=== PATIENT | female | born 1975 | race Caucasian/White ===

== ENCOUNTER 2016-09-08 05:33 | Outpatient (CLI) | payer OTHER ==
[~2016-09-08] VITALS: Ht 165.1 cm; Wt 97.5 kg
[~2016-09-08 05:33] MED LIST: AGM875T PO; FLUC200T45 PO; HYDR1TAB8 OP
== END 2016-09-08 11:12 ==
LOC: PREOP 05:33
PROVIDERS: ATTEND Surgery
DX: Z01.818 Encounter for other preprocedural examination (principal); C43.59 Malignant melanoma of other part of trunk

== ENCOUNTER 2016-09-13 06:57 | Day surgery (SDC) | payer OTHER ==
[~2016-09-13] VITALS: Ht 165.1 cm; Wt 97.5 kg
--- OUTSIDE RECORDS SUMMARY | 2016-09-13 07:03 | XMS REPORT | Continuity of Care Document ---
Author Author [facility] Organization [facility] Address Unknown Phone Unavailable Care Team Providers Care Composite Mechanic Name Role Phone JOSE MIGUEL JEAN DO PCP Insurance Providers Payer Name Policy Number Subscriber Name Relationship UMR [id number] Robert Dias Self / Same As Patient Advance Directives Directive Response Recorded Date/Time Advance Directives No 09/08/16 11:05am Health Care Power of Invoicing Machine Operator No 09/08/16 11:05am Organ Donor No 09/08/16 11:05am Resuscitation Status Full Code 09/08/16 11:05am Problems No problem information available. Medications No known medications. Social History Social History Problem Response Recorded Date/Time Alcohol Use Occasionally Uses 01/26/2014 9:05am Recreational Drug Use No 01/26/2014 9:05am Recent Foreign Travel No 01/26/2014 9:05am Recent Infectious Disease Exposure No 01/26/2014 9:05am Smoking Status Former Smoker 09/08/2016 11:05am Recent Hopitalizations No 09/08/2016 11:05am Query Response Start Date Stop Date Smoking Status Former Smoker Hospital Discharge Instructions No hospital discharge instructions. Plan of Care Discharge Date 09/08/16 11:12am Prescriptions See Medication Section Functional Status No functional status results. Allergies, Adverse Reactions, Alerts No known allergies. Immunizations No immunization records. Vital Signs Acute Vital Signs Vital Response Date/Time Height (Feet) 5 feet 09/08/2016 11:07am Height (Inches) 5.00 inches 09/08/2016 11:07am Height (Calculated Centimeters) 165.555315 cm 09/08/2016 11:07am Weight (Pounds) 215 pounds 09/08/2016 11:07am Weight (Ounces) 0.0 oz 09/08/2016 11:07am Weight (Calculated Grams) 19190.36 gm 09/08/2016 11:07am Weight (Calculated Kilograms) 97.822017 kilograms 09/08/2016 11:07am Calculated BMI 35.8 09/08/2016 11:07am Results No known relevant diagnostic tests, laboratory data and/or discharge summary. Procedures No known history of procedures. Encounters Encounter Location Arrival/Admit Date Discharge/Depart Date Attending Provider Departed Clinic [facility] 09/08/16 5:33am 09/08/16 11: 12am FADUMO MCKINNEY MD Registered Clinic [facility] 08/13/16 11:24am JOSE MIGUEL JEAN DO
--- OUTSIDE RECORDS SUMMARY | 2016-09-13 07:03 | XMS REPORT | Continuity of Care Document ---
Author Author [facility] Organization [facility] Address Unknown Phone Unavailable Care Team Providers Care Director Of Vocational Training Name Role Phone JOSE MIGUEL JEAN DO PCP Insurance Providers Payer Name Policy Number Subscriber Name Relationship UMR [id number] Robert Dias Self / Same As Patient Advance Directives Directive Response Recorded Date/Time Advance Directives No 09/08/16 11:05am Health Care Power of Printer Slotter Feeder No 09/08/16 11:05am Organ Donor No 09/08/16 [...] 5.00 inches 09/08/2016 11:07am Height (Calculated Centimeters) 165.594654 cm 09/08/2016 11:07am Weight (Pounds) 215 pounds 09/08/2016 11:07am Weight (Ounces) 0.0 oz 09/08/2016 11:07am Weight (Calculated Grams) 62746.36 gm 09/08/2016 11:07am Weight (Calculated Kilograms) 97.673681 kilograms 09/08/2016 11:07am Calculated BMI 35.8 09/08/2016 11:07am Results No known relevant diagnostic tests, laboratory data and/or discharge summary. Procedures No known history of procedures. Encounters Encounter Location Arrival/Admit Date Discharge/Depart Date Attending Provider Departed Clinic [facility] 09/08/16 5:33am 09/08/16 11: 12am FADUMO MCKINNEY MD Registered Clinic [facility] 08/13/16 11:24am JOSE MIGUEL JEAN DO
--- NOTE | 2016-09-13 08:59 | Diagnostic Imaging Report ---
EXAMINATION: Lymphoscintigraphy. After the subdermal injection of 1.1 mCi of Tc 99m sulfur colloid, around the tumor site in the back, scintigraphic imaging was performed over the chest . INDICATION: Melanoma in right lower back. FINDINGS: 3 axillary sentinel nodes are detected on the right side. IMPRESSION: 3 right axillary sentinel lymph nodes detected. Dictated by: Dictated on workstation # [id number]
[2016-09-13] MEDS ORDERED: ceFAZolin 2 GM/NS 50 ML IV ONE (09:15)
[2016-09-13 09:18] VITALS: BP 137/75
[2016-09-13] MEDS: LACTATED RINGERS 1,000 ML IV PRN ×2 (11:28→14:15)
[2016-09-13] MEDS ORDERED: MIDAZOLAM 2 MG/2 ML (VERSED) VIAL IV ONE (11:30)
[2016-09-13] MEDS ORDERED: 0.9% SODIUM CHLORIDE PF INJ 20 ML VIAL ONE (12:10)
[2016-09-13] MEDS ORDERED: METHYLENE BLUE 1% INJ 1 ML AMP ONE (12:10)
[2016-09-13] MEDS ORDERED: BUP/EPI 0.25% 1:200,000 (MARCAINE) 30 ML VIAL ONE ×2 (12:10→14:14)
[2016-09-13] MEDS ORDERED: EPINEPHrine INJECTION 1 MG/ML AMP ONE (12:30)
--- NOTE | 2016-09-13 12:51 | Progress Note-Pre Operative ---
Pre-Operative Progress Note H&P Reviewed The H&P was reviewed, patient examined and no changes noted. Date H&P Reviewed: Sep 13, 2016 Time H&P Reviewed: 12:51 Pre-Operative Diagnosis: melanoma of back FADUMO MCKINNEY MD Sep 13, 2016 12:51 pm
[2016-09-13] MEDS ORDERED: ROCURONIUM 50 MG/5 ML (ZEMURON) VIAL IV ONE (12:58)
[2016-09-13] MEDS ORDERED: fentaNYL INJECTION 100 MCG/2 ML AMP ONE ×2 (12:58→14:05)
[2016-09-13] MEDS ORDERED: proPOfol 200 MG/20 ML (DIPRIVAN) VIAL IV ONE (12:58)
[2016-09-13] MEDS ORDERED: ONDANSETRON 4 MG/2 ML (SDV) Z0FRAN ONE (14:05)
[2016-09-13] MEDS ORDERED: LACTATED RINGERS 1,000 ML IV ONE ×2 (14:05→14:32)
[2016-09-13] MEDS ORDERED: SEVOFLURANE (ULTANE) 15 ML INHAL SOLN ONE ×4 (14:05→14:32)
[2016-09-13] MEDS ORDERED: NEOSTIGMINE (BLOXIVERZ ) 1 MG/1ML 10 ML VIAL ONE (14:31)
[2016-09-13] MEDS ORDERED: GLYCOPYRROLATE 0.2 MG/ML (ROBINUL) 2 ML VIAL ONE (14:31)
[2016-09-13] MEDS: morphine INJ 10 MG/ML 1ML (SYR OR VIAL) IV PRN ×2 (14:44→14:54)
[2016-09-13] MEDS ORDERED: ONDANSETRON 4 MG/2 ML (SDV) Z0FRAN IV PRN (15:00)
[2016-09-13] MEDS ORDERED: KETOROLAC 30 MG/ML VIAL IV SCH (15:00)
--- NOTE | 2016-09-13 15:03 | Progress Note-Post Operative ---
Post-Operative Progess Note Pre-Operative Diagnosis melanoma of back Post-Operative Diagnosis SAME Post-Op Procedure Note Date of Procedure: Sep 13, 2016 Name of Procedure: 1. [place] lymph node biopsy 2. Wide excision of melanoa with STSG(24 sq cm) Anesthesia Type Gen Estimated blood loss (mL): Minimal Specimen(s) collected [place] node and melanoma FADUMO MCKINNEY MD Sep 13, 2016 3:03 pm
[2016-09-13] MEDS ORDERED: HYDR-3812 PO (15:05)
--- NOTE | 2016-09-13 15:06 | Discharge Inst-Simple/Standard ---
Discharge Inst-Standard Discharge Medications New, Converted or Re-Newed RX: RX on Chart Patient Instructions/Follow Up Plan of Care/Instructions/FU: Dressings to stay intact until Tuesday the . F/U with my nurse on Tuesday(09/17) Activity as Tolerated: Yes Discharge Diet: No Restrictions FADUMO MCKINNEY MD Sep 13, 2016 3:05 pm
[2016-09-13 15:30] VITALS: BP 118/63
[2016-09-13 16:00] VITALS: BP 131/71
[2016-09-13 16:30] VITALS: BP 116/68
--- NOTE | 2016-09-14 10:00 | OPERATIVE REPORT ---
PROCEDURE PHYSICIAN: FADUMO MCKINNEY DATE OF PROCEDURE: 09/13/2016 PREOPERATIVE DIAGNOSIS: Malignant melanoma of the back. POSTOPERATIVE DIAGNOSIS: Malignant melanoma of the back. OPERATION: 1. [place] lymph node biopsy- right axilla. 2. Wide excision of melanoma with split-thickness skin graft (24 sq cm). SURGEON: [place] ANESTHESIA: General anesthesia. BLOOD LOSS: Minimal. FLUIDS: 1100 mL of crystalloids. TYPE OF WOUND: Type I (clean wound) INDICATION FOR THE PROCEDURE: Punch biopsy of a lesion over the back was found to be a level IV melanoma. Therefore, she returned for wide excision with [address] around and split thickness skin grafting, combined with sentinel lymph node biopsy. Informed consent was obtained after reviewing the operative details and complications of wound infection, failure of the graft and postoperative hematoma. DESCRIPTION OF PROCEDURE: Following her admission to the outpatient surgery area, she underwent lymphoscintigraphy using technetium labeled sulfa colloid at the radiology department. Activity was noted in the right axilla. Subsequently, she was brought to the operating room and general anesthesia induced using an endotracheal tube. 2 grams of Ancef were administered intravenously for prophylaxis against wound infection. I injected a total of 4 mL of methylene blue intradermally into the lesion at the beginning of the operation. 1. SENTINEL LYMPH NODE BIOPSY RIGHT AXILLA: After adequate antiseptic preparation, preemptive analgesia was established using 0.25% Marcaine with epinephrine. A 5 cm incision was made inferior to the axillary hair line and using the gamma probe, a blue-colored lymph node with high activity was encountered. It was removed after controlling the lymphatics were Ligaclips. Further probing did not show any activity and therefore the biopsy was completed/ The area was irrigated with saline and the incision closed with 3-0 Vicryl for the subcutaneous tissue and 4-0 Vicryl for skin, in a subcuticular fashion. 2. WIDE EXCISION WITH SPLIT THICKNESS SKIN GRAFT: Once the right axilla incision was covered with a sterile dressing, she was turned prone onto the operating table and other pressure areas were padded and protected. An area of full-thickness skin measuring 6 x 4 cm was excised over the back. Hemostasis was achieved using cautery and thickness skin graft obtained from the upper back placed over the site of excision. It was secured with edison and a nonadherent dressing applied. She was then turned supine before being extubated and taken to the recovery room in a stable condition. Job ID: [id number] Dictated Date: 09/13/2016 15:09:15 Remelt Pan Tank Operator Date: 09/14/2016 09:51:13 / chito MEAD
== END 2016-09-13 16:50 | disposition home or self-care (01) ==
LOC: CARD 06:57
PROVIDERS: ATTEND Surgery
DX: C43.59 Malignant melanoma of other part of trunk (principal); Z11.2 Encounter for screening for other bacterial diseases
CPT/HCPCS: 78195; 84703; 87081; 88305; 88307; 88344

== ENCOUNTER 2016-11-04 13:46 | Outpatient (RCR) | payer OTHER ==
--- OUTSIDE RECORDS SUMMARY | 2016-10-20 13:09 | XMS REPORT | Continuity of Care Document ---
Author Author [facility] Organization [facility] Address Unknown Phone Unavailable Care Team Providers Care Oil Winterizer Name Role Phone JOSE MIGUEL JEAN DO PCP Insurance Providers Payer Name Policy Number Subscriber Name Relationship UMR [id number] Robert Dias Self / Same As Patient Advance Directives Directive Response Recorded Date/Time Advance Directives No 09/08/16 11:05am Health Care Power of Sugar Controller No 09/08/16 11:05am Organ Donor No 09/08/16 [...] 5.00 inches 09/08/2016 11:07am Height (Calculated Centimeters) 165.131388 cm 09/08/2016 11:07am Weight (Pounds) 215 pounds 09/08/2016 11:07am Weight (Ounces) 0.0 oz 09/08/2016 11:07am Weight (Calculated Grams) 84273.36 gm 09/08/2016 11:07am Weight (Calculated Kilograms) 97.210405 kilograms 09/08/2016 11:07am Calculated BMI 35.8 09/08/2016 11:07am Results No known relevant diagnostic tests, laboratory data and/or discharge summary. Procedures No known history of procedures. Encounters Encounter Location Arrival/Admit Date Discharge/Depart Date Attending Provider Departed Clinic [facility] 09/08/16 5:33am 09/08/16 11: 12am FADUMO MCKINNEY MD Registered Clinic [facility] 08/13/16 11:24am JOSE MIGUEL JEAN DO
[2016-10-20 14:00] LABS: BASOPHILS % (AUTO) 1 % (0-10); EOSINOPHILS # (AUTO) 0.4 10^3/uL (0.0-0.3); EOSINOPHILS % (AUTO) 5 % (0-10); LYMPHOCYTES # (AUTO) 2.4 X 10^3 (1.0-4.0); LYMPHOCYTES % (AUTO) 31 % (12-44); MEAN CORPUSCULAR HEMOGLOBIN 30 PG (25-34); MEAN CORPUSCULAR HGB CONC 33 G/DL (32-36); MEAN CORPUSCULAR VOLUME 92 FL (80-99); MEAN PLATELET VOLUME 8.9 FL (7.4-10.4); MONOCYTES # (AUTO) 0.6 X 10^3 (0.0-1.0); MONOCYTES % (AUTO) 7 % (0-12); NEUTROPHILS # (AUTO) 4.4 X 10^3 (1.8-7.8); NEUTROPHILS % (AUTO) 57 % (42-75); PLATELET COUNT 450 10^3/uL (130-400); RED BLOOD COUNT 4.03 10^6/uL (4.35-5.85); RED CELL DISTRIBUTION WIDTH 13.5 % (10.0-14.5); WHITE BLOOD COUNT 7.7 10^3/uL (4.3-11.0)
[2016-10-20 14:50] LABS: ALANINE AMINOTRANSFERASE 14 U/L (0-55); ANION GAP 9 MMOL/L (5-14); ASPARTATE AMINO TRANSFERASE 18 U/L (5-34); BILIRUBIN,TOTAL 0.3 MG/DL (0.1-1.0); BLOOD UREA NITROGEN 12 MG/DL (7-18); BUN/CREATININE RATIO 12; CALCIUM 8.9 MG/DL (8.5-10.1); CARBON DIOXIDE 24 MMOL/L (21-32); CHLORIDE 108 MMOL/L (98-107); CREATININE SERUM 0.97 MG/DL (0.60-1.30); GFR ESTIMATED > 60; GLUCOSE 99 MG/DL (70-105); POTASSIUM 4.1 MMOL/L (3.6-5.0); SODIUM 141 MMOL/L (135-145); TOTAL PROTEIN 6.6 G/DL (6.4-8.2)
[2016-10-20 15:16] LABS: LACTATE DEHYDROGENASE 188 U/L (125-220)
[~2016-11-04 13:46] MED LIST changes: +HYDR-3812 PO
[2016-11-04 14:06] LABS: BASOPHILS % (AUTO) 0 % (0-10); EOSINOPHILS # (AUTO) 0.3 10^3/uL (0.0-0.3); EOSINOPHILS % (AUTO) 3 % (0-10); LYMPHOCYTES # (AUTO) 2.5 X 10^3 (1.0-4.0); LYMPHOCYTES % (AUTO) 31 % (12-44); MEAN CORPUSCULAR HEMOGLOBIN 30 PG (25-34); MEAN CORPUSCULAR HGB CONC 33 G/DL (32-36); MEAN CORPUSCULAR VOLUME 90 FL (80-99); MEAN PLATELET VOLUME 8.9 FL (7.4-10.4); MONOCYTES # (AUTO) 0.6 X 10^3 (0.0-1.0); MONOCYTES % (AUTO) 7 % (0-12); NEUTROPHILS # (AUTO) 4.7 X 10^3 (1.8-7.8); NEUTROPHILS % (AUTO) 59 % (42-75); PLATELET COUNT 359 10^3/uL (130-400); RED BLOOD COUNT 4.24 10^6/uL (4.35-5.85); RED CELL DISTRIBUTION WIDTH 13.4 % (10.0-14.5)
[2016-11-04 14:45] LABS: ALANINE AMINOTRANSFERASE 8 U/L (0-55); ALBUMIN 4.1 G/DL (3.2-4.5); ANION GAP 9 MMOL/L (5-14); ASPARTATE AMINO TRANSFERASE 17 U/L (5-34); BILIRUBIN,TOTAL 0.5 MG/DL (0.1-1.0); BLOOD UREA NITROGEN 12 MG/DL (7-18); BUN/CREATININE RATIO 13; CALCIUM 9.1 MG/DL (8.5-10.1); CARBON DIOXIDE 22 MMOL/L (21-32); CHLORIDE 107 MMOL/L (98-107); CREATININE SERUM 0.92 MG/DL (0.60-1.30); GFR ESTIMATED > 60; GLUCOSE 87 MG/DL (70-105); LACTATE DEHYDROGENASE 172 U/L (125-220); POTASSIUM 4.2 MMOL/L (3.6-5.0); SODIUM 138 MMOL/L (135-145); TOTAL PROTEIN 6.8 G/DL (6.4-8.2)
== END 2017-01-18 | disposition home or self-care (01) ==
LOC: ONC 13:46
PROVIDERS: ATTEND Internal Medicine Hematology & Oncology
DX: C43.59 Malignant melanoma of other part of trunk (principal); D22.5 Melanocytic nevi of trunk; R79.89 Other specified abnormal findings of blood chemistry; E66.9 Obesity, unspecified; Z68.35 Body mass index [BMI] 35.0-35.9, adult
CPT/HCPCS: 36415; 80053; 83615; 85025; 99213

== ENCOUNTER 2017-01-24 10:16 | Outpatient (RCR) | payer OTHER ==
[2017-01-24 10:29] LABS: BASOPHILS # (AUTO) 0.1 10^3/uL (0.0-0.1); BASOPHILS % (AUTO) 1 % (0-10); EOSINOPHILS # (AUTO) 0.6 10^3/uL (0.0-0.3); EOSINOPHILS % (AUTO) 8 % (0-10); LYMPHOCYTES # (AUTO) 2.4 X 10^3 (1.0-4.0); LYMPHOCYTES % (AUTO) 31 % (12-44); MEAN CORPUSCULAR HEMOGLOBIN 31 PG (25-34); MEAN CORPUSCULAR HGB CONC 32 G/DL (32-36); MEAN CORPUSCULAR VOLUME 95 FL (80-99); MEAN PLATELET VOLUME 8.9 FL (7.4-10.4); MONOCYTES # (AUTO) 0.5 X 10^3 (0.0-1.0); MONOCYTES % (AUTO) 6 % (0-12); NEUTROPHILS # (AUTO) 4.1 X 10^3 (1.8-7.8); NEUTROPHILS % (AUTO) 54 % (42-75); PLATELET COUNT 378 10^3/uL (130-400); RED BLOOD COUNT 4.27 10^6/uL (4.35-5.85); RED CELL DISTRIBUTION WIDTH 14.3 % (10.0-14.5); WHITE BLOOD COUNT 7.6 10^3/uL (4.3-11.0)
[2017-01-24 11:35] LABS: ALANINE AMINOTRANSFERASE 8 U/L (0-55); ALBUMIN 4.1 G/DL (3.2-4.5); ANION GAP 10 MMOL/L (5-14); ASPARTATE AMINO TRANSFERASE 16 U/L (5-34); BILIRUBIN,TOTAL 0.3 MG/DL (0.1-1.0); BLOOD UREA NITROGEN 13 MG/DL (7-18); BUN/CREATININE RATIO 15; CALCIUM 9.2 MG/DL (8.5-10.1); CARBON DIOXIDE 23 MMOL/L (21-32); CHLORIDE 107 MMOL/L (98-107); CREATININE SERUM 0.84 MG/DL (0.60-1.30); GFR ESTIMATED > 60; GLUCOSE 93 MG/DL (70-105); POTASSIUM 4.5 MMOL/L (3.6-5.0); SODIUM 140 MMOL/L (135-145); TOTAL PROTEIN 6.8 G/DL (6.4-8.2)
== END 2017-04-24 | disposition home or self-care (01) ==
LOC: ONC 10:16
PROVIDERS: ATTEND Internal Medicine Hematology & Oncology
DX: C43.59 Malignant melanoma of other part of trunk (principal); D22.5 Melanocytic nevi of trunk; R79.89 Other specified abnormal findings of blood chemistry; E66.9 Obesity, unspecified; Z68.35 Body mass index [BMI] 35.0-35.9, adult
CPT/HCPCS: 36415; 80053; 85025; 99213

== ENCOUNTER 2017-04-25 10:38 | Outpatient (RCR) | payer OTHER ==
[2017-06-23 15:55] LABS: ANION GAP 10 MMOL/L (5-14); BLOOD UREA NITROGEN 14 MG/DL (7-18); BUN/CREATININE RATIO 14; CALCIUM 9.2 MG/DL (8.5-10.1); CARBON DIOXIDE 24 MMOL/L (21-32); CHLORIDE 105 MMOL/L (98-107); CREATININE SERUM 0.98 MG/DL (0.60-1.30); GFR ESTIMATED > 60; GLUCOSE 94 MG/DL (70-105); SODIUM 139 MMOL/L (135-145)
== END 2017-07-25 | disposition home or self-care (01) ==
LOC: ONC 10:38
PROVIDERS: ATTEND Internal Medicine Hematology & Oncology
DX: C43.59 Malignant melanoma of other part of trunk (principal); D22.5 Melanocytic nevi of trunk; R79.89 Other specified abnormal findings of blood chemistry; E66.9 Obesity, unspecified; Z68.35 Body mass index [BMI] 35.0-35.9, adult
CPT/HCPCS: 80048

== ENCOUNTER 2017-05-10 14:15 | Outpatient (RCR) | payer OTHER ==
[2017-05-10 14:24] LABS: BASOPHILS % (AUTO) 1 % (0-10); EOSINOPHILS # (AUTO) 0.5 10^3/uL (0.0-0.3); EOSINOPHILS % (AUTO) 7 % (0-10); LYMPHOCYTES # (AUTO) 2.1 X 10^3 (1.0-4.0); LYMPHOCYTES % (AUTO) 26 % (12-44); MEAN CORPUSCULAR HEMOGLOBIN 32 PG (25-34); MEAN CORPUSCULAR HGB CONC 34 G/DL (32-36); MEAN CORPUSCULAR VOLUME 96 FL (80-99); MEAN PLATELET VOLUME 9.4 FL (7.4-10.4); MONOCYTES # (AUTO) 0.5 X 10^3 (0.0-1.0); MONOCYTES % (AUTO) 7 % (0-12); NEUTROPHILS # (AUTO) 4.7 X 10^3 (1.8-7.8); NEUTROPHILS % (AUTO) 60 % (42-75); PLATELET COUNT 353 10^3/uL (130-400); RED BLOOD COUNT 4.01 10^6/uL (4.35-5.85); RED CELL DISTRIBUTION WIDTH 12.7 % (10.0-14.5); WHITE BLOOD COUNT 7.8 10^3/uL (4.3-11.0)
[2017-05-10 14:44] LABS: ALBUMIN 4.1 GM/DL (3.2-4.5); BILIRUBIN,TOTAL 0.3 MG/DL (0.1-1.0); CALCIUM 9.1 MG/DL (8.5-10.1); CREATININE SERUM 1.4 MG/DL (0.60-1.30); POTASSIUM 4.5 MMOL/L (3.6-5.0); TOTAL PROTEIN 7.1 GM/DL (6.4-8.2)
[2017-05-10 15:25] LABS: BILIRUBIN,URINE NEGATIVE (NEGATIVE); KETONES,URINE NEGATIVE (NEGATIVE); LEUKOCYTE ESTERASE ,URINE 1+ (NEGATIVE); NITRITE,URINE NEGATIVE (NEGATIVE); PH,URINE 6 (5-9); PROTEIN,URINE NEGATIVE (NEGATIVE); UROBILINOGEN,URINE NORMAL (NORMAL)
== END 2017-05-14 | disposition home or self-care (01) ==
LOC: ONC 14:15
PROVIDERS: ATTEND Internal Medicine Hematology & Oncology
DX: C43.59 Malignant melanoma of other part of trunk (principal); D22.5 Melanocytic nevi of trunk; R79.89 Other specified abnormal findings of blood chemistry; E66.9 Obesity, unspecified; Z68.35 Body mass index [BMI] 35.0-35.9, adult
CPT/HCPCS: 36415; 80053; 81000; 83615; 85025; 99213

== ENCOUNTER → 2017-08-16 | Outpatient (CLI) | payer OTHER ==
[~2017-08-16] MED LIST changes: +ACHD5005 PO; -HYDR-3812 PO
--- NOTE | 2017-08-17 09:16 | Diagnostic Imaging Report ---
INDICATION: Screening. The current study was also evaluated with a Computer Aided Detection (CAD) system. Comparison made with prior examination from 08/13/2016, 08/12/15, 06/21/2014 and 08/18/2011. FINDINGS: There are scattered fibroglandular densities in the breasts bilaterally. There are benign type calcifications. There is no dominant mass, spiculated lesion or suspicious calcification identified. Skin, nipples and axilla are unremarkable. IMPRESSION: Category 2 benign ACR BI-RADS Category 2: Benign findings. Result letter will be mailed to the patient. Note: At least 10% of breast cancer is not imaged by mammography. Dictated by: Dictated on workstation # [id number]
== END ==
LOC: RAD 12:56
PROVIDERS: ATTEND Family Medicine
DX: Z12.31 Encounter for screening mammogram for malignant neoplasm of breast (principal)
CPT/HCPCS: 77067

== ENCOUNTER 2017-11-04 14:03 | Outpatient (RCR) | payer OTHER ==
[2017-11-04 14:50] LABS: BASOPHILS % (AUTO) 1 % (0-10); EOSINOPHILS # (AUTO) 0.5 10^3/uL (0.0-0.3); EOSINOPHILS % (AUTO) 6 % (0-10); HEMATOCRIT 40 % (35-52); HEMOGLOBIN 13.6 G/DL (11.5-16.0); LYMPHOCYTES # (AUTO) 2.1 X 10^3 (1.0-4.0); LYMPHOCYTES % (AUTO) 25 % (12-44); MEAN CORPUSCULAR HEMOGLOBIN 31 PG (25-34); MEAN CORPUSCULAR HGB CONC 34 G/DL (32-36); MEAN CORPUSCULAR VOLUME 92 FL (80-99); MEAN PLATELET VOLUME 10.1 FL (7.4-10.4); MONOCYTES # (AUTO) 0.6 X 10^3 (0.0-1.0); MONOCYTES % (AUTO) 7 % (0-12); NEUTROPHILS # (AUTO) 5.3 X 10^3 (1.8-7.8); NEUTROPHILS % (AUTO) 62 % (42-75); PLATELET COUNT 354 10^3/uL (130-400); RED BLOOD COUNT 4.37 10^6/uL (4.35-5.85); RED CELL DISTRIBUTION WIDTH 13.1 % (10.0-14.5); WHITE BLOOD COUNT 8.5 10^3/uL (4.3-11.0)
[2017-11-04 15:15] LABS: ALANINE AMINOTRANSFERASE 12 U/L (0-55); ALBUMIN 4.5 GM/DL (3.2-4.5); ALKALINE PHOSPHATASE 55 U/L (40-136); BILIRUBIN,TOTAL 0.5 MG/DL (0.1-1.0); BUN/CREATININE RATIO 18; CALCIUM 9.5 MG/DL (8.5-10.1); CARBON DIOXIDE 22 MMOL/L (21-32); CHLORIDE 105 MMOL/L (98-107); CREATININE SERUM 0.83 MG/DL (0.60-1.30); GFR ESTIMATED > 60; GLUCOSE 79 MG/DL (70-105); SODIUM 137 MMOL/L (135-145); TOTAL PROTEIN 7.2 GM/DL (6.4-8.2)
== END 2018-02-02 | disposition home or self-care (01) ==
LOC: ONC 14:03
PROVIDERS: ATTEND Internal Medicine Hematology & Oncology
DX: C43.59 Malignant melanoma of other part of trunk (principal); D22.5 Melanocytic nevi of trunk; E66.9 Obesity, unspecified; Z68.34 Body mass index [BMI] 34.0-34.9, adult
CPT/HCPCS: 36415; 80053; 83615; 85025; 99213

== ENCOUNTER 2018-06-23 15:01 | Outpatient (RCR) | payer BC, OTHER ==
[2018-06-23 15:24] LABS: BASOPHILS % (AUTO) 1 % (0-10); EOSINOPHILS # (AUTO) 0.5 10^3/uL (0.0-0.3); EOSINOPHILS % (AUTO) 5 % (0-10); HEMATOCRIT 37 % (35-52); HEMOGLOBIN 12.1 G/DL (11.5-16.0); LYMPHOCYTES # (AUTO) 2.5 X 10^3 (1.0-4.0); LYMPHOCYTES % (AUTO) 30 % (12-44); MEAN CORPUSCULAR HEMOGLOBIN 32 PG (25-34); MEAN CORPUSCULAR HGB CONC 33 G/DL (32-36); MEAN CORPUSCULAR VOLUME 98 FL (80-99); MEAN PLATELET VOLUME 9.2 FL (7.4-10.4); MONOCYTES # (AUTO) 0.5 X 10^3 (0.0-1.0); MONOCYTES % (AUTO) 6 % (0-12); NEUTROPHILS # (AUTO) 4.9 X 10^3 (1.8-7.8); NEUTROPHILS % (AUTO) 58 % (42-75); PLATELET COUNT 353 10^3/uL (130-400); RED CELL DISTRIBUTION WIDTH 13.2 % (10.0-14.5); WHITE BLOOD COUNT 8.5 10^3/uL (4.3-11.0)
[2018-06-23 15:42] LABS: ALANINE AMINOTRANSFERASE 8 U/L (0-55); ALBUMIN 4.2 GM/DL (3.2-4.5); ALKALINE PHOSPHATASE 50 U/L (40-136); BILIRUBIN,TOTAL 0.3 MG/DL (0.1-1.0); BUN/CREATININE RATIO 19; CALCIUM 9.4 MG/DL (8.5-10.1); CARBON DIOXIDE 22 MMOL/L (21-32); CHLORIDE 106 MMOL/L (98-107); CREATININE SERUM 0.95 MG/DL (0.60-1.30); GFR ESTIMATED > 60; GLUCOSE 95 MG/DL (70-105); POTASSIUM 4.2 MMOL/L (3.6-5.0); SODIUM 136 MMOL/L (135-145); TOTAL PROTEIN 6.9 GM/DL (6.4-8.2)
== END 2018-09-21 | disposition home or self-care (01) ==
LOC: ONC 15:01
PROVIDERS: ATTEND Internal Medicine Hematology & Oncology
DX: C43.59 Malignant melanoma of other part of trunk (principal); D22.5 Melanocytic nevi of trunk; E66.9 Obesity, unspecified; Z68.36 Body mass index [BMI] 36.0-36.9, adult
CPT/HCPCS: 80053; 83615; 85025; 99213

== ENCOUNTER → 2018-08-24 | Outpatient (CLI) | payer BC ==
--- NOTE | 2018-08-24 08:49 | Diagnostic Imaging Report ---
INDICATION: Routine screening. Comparison is made with prior mammogram from 08/16/2017 and 08/13/2016. 2-D and 3-D bilateral screening mammography was performed with a Computer Aided Detection (CAD) system. FINDINGS: Scattered fibroglandular densities are identified bilaterally. Benign calcifications are identified bilaterally. No dominant mass or malignant appearing microcalcifications are seen. The axillae are unremarkable. IMPRESSION: No mammographic features suspicious for malignancy are identified. ACR BI-RADS Category 2: Benign findings. Result letter will be mailed to the patient. Note: At least 10% of breast cancer is not imaged by mammography. Dictated by: Dictated on workstation # [id number]
== END ==
LOC: RAD 07:58
PROVIDERS: ATTEND Family Medicine
DX: Z12.31 Encounter for screening mammogram for malignant neoplasm of breast (principal)
CPT/HCPCS: 77067

== ENCOUNTER 2019-01-02 17:53 | Emergency (ER) | payer BC ==
[~2019-01-02] VITALS: Ht 165.1 cm; Wt 98.9 kg
[2019-01-02 18:00] VITALS: BP_SYST 154; BP_SYST 164; BP_DIAS 114; BP_DIAS 97
--- OUTSIDE RECORDS SUMMARY | 2019-01-02 18:00 | XMS REPORT | Continuity of Care Document ---
Author Organization Unknown Address Unknown Allergies Active Description Code Type Severity Reaction Onset Reported/Identified Relationship to Patient Clinical Status Yes No Known Drug Allergies [id number] Drug Allergy Unknown N/A 01/26/2014 Medications There is no data. Problems Date Dx Coded Attending Type Code Diagnosis Diagnosed By 01/26/2014 YUDITH RUVALCABA DO Ot 802.20 MANDIBLE FX NOS-CLOSED 01/26/2014 YUDITH RUVALCABA DO Ot E000.8 OTHER EXTERNAL CAUSE STATUS 01/26/2014 YUDITH RUVALCABA DO Ot E007.3 ACTIVITIES INVOLVING BASEBALL 01/26/2014 YUDITH RUVALCABA DO Ot E917.0 STRUCK IN SPORTS 07/29/2014 BRANDY CUEVAS DO Ot V76.12 08/12/2015 Ot V76.12 08/12/2015 BRANDY CUEVAS DO S Ot V76.12 09/05/2015 BRANDY CUEVAS DO Ot Z12.31 08/17/2016 BRANDY CUEVAS DO Ot Z12.31 ENCNTR SCREEN MAMMOGRAM FOR MALIGNANT NE 09/02/2016 BRANDY CUEVAS DO S Ot Z12.31 ENCNTR SCREEN MAMMOGRAM FOR MALIGNANT NE 09/08/2016 HANK VENTURA, FADUMO Thurman Ot C43.59 MALIGNANT MELANOMA OF OTHER PART OF TRUN 09/08/2016 FADUMO MCKINNEY MD Ot Z01.818 ENCOUNTER FOR OTHER PREPROCEDURAL EXAMIN 09/08/2016 FADUMO MCKINNEY MD Ot C43.59 MALIGNANT MELANOMA OF OTHER PART OF TRUN 09/08/2016 FADUMO MCKINNEY MD Ot Z01.818 ENCOUNTER FOR OTHER PREPROCEDURAL EXAMIN 09/13/2016 Ot V76.12 OTH SCREEN MAMMO- MALIGN NEOPLASM OF [place] 09/13/2016 BRANDY CUEVAS DO Ot V76.12 OTH SCREEN MAMMO-MALIGN NEOPLASM OF [place] 09/13/2016 BRANDY CUEVAS DO Ot Z12.31 ENCNTR SCREEN MAMMOGRAM FOR MALIGNANT NE 09/13/2016 BRANDY CUEVAS DO S Ot Z12.31 ENCNTR SCREEN MAMMOGRAM FOR MALIGNANT NE 09/13/2016 HANK VENTURA, FADUMO Thurman Ot C43.59 MALIGNANT MELANOMA OF OTHER PART OF TRUN 09/13/2016 FADUMO MCKINNEY MD Ot Z11.2 ENCOUNTER FOR SCREENING FOR OTHER BACTER 09/14/2016 FADUMO MCKINNEY MD Ot C43.59 MALIGNANT MELANOMA OF OTHER PART OF TRUN 09/14/2016 FADUMO MCKINNEY MD Ot Z11.2 ENCOUNTER FOR SCREENING FOR OTHER BACTER 09/16/2016 FADUMO MCKINNEY MD Ot C43.59 MALIGNANT MELANOMA OF OTHER PART OF TRUN 09/16/2016 FADUMO MCKINNEY MD Ot Z11.2 ENCOUNTER FOR SCREENING FOR OTHER BACTER 12/02/2016 ANABEL SÁNCHEZ MD, Ot C43.59 MALIGNANT MELANOMA OF OTHER PART OF TRUN 01/18/2017 ANABEL SÁNCHEZ MD, Ot C43.59 MALIGNANT MELANOMA OF OTHER PART OF TRUN 01/18/2017 ANABEL SÁNCHEZ MD, Ot 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 01/18/2017 ANABEL SÁNCHEZ MD Ot E66.9 OBESITY, UNSPECIFIED 01/18/2017 ANABEL SÁNCHEZ MD Ot R79.89 OTHER SPECIFIED ABNORMAL FINDINGS OF BLO 01/18/2017 ANABEL SÁNCHEZ MD, Ot Z68.35 BODY MASS INDEX (BMI) 35.0-35.9, ADULT 01/26/2017 ANABEL SÁNCHEZ MD, Ot C43.59 MALIGNANT MELANOMA OF OTHER PART OF TRUN 01/26/2017 ANABEL SÁNCHEZ MD, Ot 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 01/26/2017 ANABEL SÁNCHEZ MD Ot E66.9 OBESITY, UNSPECIFIED 01/26/2017 ANABEL SÁNCHEZ MD Ot R79.89 OTHER SPECIFIED ABNORMAL FINDINGS OF BLO 01/26/2017 ANABEL SÁNCHEZ MD, Ot Z68.35 BODY MASS INDEX (BMI) 35.0-35.9, ADULT 03/11/2017 ANABEL SÁNCHEZ MD, Ot C43.59 MALIGNANT MELANOMA OF OTHER PART OF TRUN 03/11/2017 ANABEL SÁNCHEZ MD, Ot 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 03/11/2017 ANABEL SÁNCHEZ MD, Ot E66.9 OBESITY, UNSPECIFIED 03/11/2017 ANABEL SÁNCHEZ MD Ot R79.89 OTHER SPECIFIED ABNORMAL FINDINGS OF BLO 03/11/2017 ANABEL SÁNCHEZ MD, Ot Z68.35 BODY MASS INDEX (BMI) 35.0-35.9, ADULT 04/18/2017 RESHMAESTELA BRANDY S Ot V76.12 OTH SCREEN MAMMO-MALIGN NEOPLASM OF [place] 04/18/2017 CELSONDER BRANDY S Ot Z12.31 ENCNTR SCREEN MAMMOGRAM FOR MALIGNANT NE 04/18/2017 CELSONDER BRANDY S Ot Z12.31 ENCNTR SCREEN MAMMOGRAM FOR MALIGNANT NE 04/18/2017 ANABEL SÁNCHEZ MD, Ot C43.59 MALIGNANT MELANOMA OF OTHER PART OF TRUN 04/18/2017 ANABEL SÁNCHEZ MD Ot 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 04/18/2017 ANABEL SÁNCHEZ MD, Ot E66.9 OBESITY, UNSPECIFIED 04/18/2017 ANABEL SÁNCHEZ MD, Ot R79.89 OTHER SPECIFIED ABNORMAL FINDINGS OF BLO 04/18/2017 ANABEL SÁNCHEZ MD, Ot Z68.35 BODY MASS INDEX (BMI) 35.0-35.9, ADULT 04/24/2017 ANABEL SÁNCHEZ MD, Ot C43.59 MALIGNANT MELANOMA OF OTHER PART OF TRUN 04/24/2017 ANABEL SÁNCHEZ MD Ot 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 04/24/2017 ANABEL SÁNCHEZ MD, Ot E66.9 OBESITY, UNSPECIFIED 04/24/2017 ANABEL SÁNCHEZ MD Ot R79.89 OTHER SPECIFIED ABNORMAL FINDINGS OF BLO 04/24/2017 ANABEL SÁNCHEZ MD Ot Z68.35 BODY MASS INDEX (BMI) 35.0-35.9, ADULT 05/09/2017 VARSHA IBANEZ Ot C43.59 MALIGNANT MELANOMA OF OTHER PART OF TRUN 05/09/2017 VARSHA IBANEZ Ot 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59 MALIGNANT MELANOMA OF OTHER PART OF TRUN 05/14/2017 VARSHA IBANEZ N Ot 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 05/14/2017 MARCELLE BOBKRISTINA N Ot E66.9 OBESITY, UNSPECIFIED 05/14/2017 MARCELLEVARSHA FLYNN N Ot R79.89 OTHER SPECIFIED ABNORMAL FINDINGS OF BLO 05/14/2017 VARSHA IBANEZ N Ot Z68.35 BODY MASS INDEX (BMI) 35.0-35.9, ADULT 05/23/2017 VARSHA IBANEZ N Ot C43.59 MALIGNANT MELANOMA OF OTHER PART OF TRUN 05/23/2017 VARSHA IBANEZ N Ot 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 05/23/2017 VARSHA IBANEZ N Ot E66.9 OBESITY, UNSPECIFIED 05/23/2017 MARCELLEVARSHA FLYNN N Ot R79.89 OTHER SPECIFIED ABNORMAL FINDINGS OF BLO 05/23/2017 VARSHA IBANEZ N Ot Z68.35 BODY MASS INDEX (BMI) 35.0-35.9, ADULT 07/20/2017 VARSHA IBANEZ N Ot C43.59 MALIGNANT MELANOMA OF OTHER PART OF TRUN 07/20/2017 VARSHA IBANEZ N Ot 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 07/20/2017 MARCELLEVARSHA FLYNN N Ot E66.9 OBESITY, UNSPECIFIED 07/20/2017 MARCELLE, BOBKRISTINA N Ot R79.89 OTHER SPECIFIED ABNORMAL FINDINGS OF BLO 07/20/2017 VARSHA IBANEZ N Ot Z68.35 BODY MASS INDEX (BMI) 35.0-35.9, ADULT 07/20/2017 BRANDY CUEVAS DO Ot V76.12 OTH SCREEN MAMMO-MALIGN NEOPLASM OF [place] 07/20/2017 BRANDY CUEVAS DO S Ot Z12.31 ENCNTR SCREEN MAMMOGRAM FOR MALIGNANT NE 07/20/2017 BRANDY CUEVAS DO S Ot Z12.31 ENCNTR SCREEN MAMMOGRAM FOR MALIGNANT NE 07/20/2017 VARSHA IBANEZ N Ot C43.59 MALIGNANT MELANOMA OF OTHER PART OF TRUN 07/20/2017 VARSHA IBANEZ N Ot 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 07/20/2017 VARSHA IBANEZ N Ot E66.9 OBESITY, UNSPECIFIED 07/20/2017 VARSHA IABNEZ N Ot R79.89 OTHER SPECIFIED ABNORMAL FINDINGS OF BLO 07/20/2017 VARSHA IBANEZ N Ot Z68.35 BODY MASS INDEX (BMI) 35.0-35.9, ADULT 07/21/2017 VARSHA IBANEZ N Ot C43.59 MALIGNANT MELANOMA OF OTHER PART OF TRUN 07/21/2017 MARCELLE JALENKRISTINA N Ot 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 07/21/2017 MARCELLE JALENKRISTINA N Ot E66.9 OBESITY, UNSPECIFIED 07/21/2017 MARCELLEVARSHA FLYNN N Ot R79.89 OTHER SPECIFIED ABNORMAL FINDINGS OF BLO 07/21/2017 VARSHA IBANEZ N Ot Z68.35 BODY MASS INDEX (BMI) 35.0-35.9, ADULT 07/21/2017 VARSHA IBANEZ N Ot C43.59 MALIGNANT MELANOMA OF OTHER PART OF TRUN 07/21/2017 VARSHA IBANEZ N Ot 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 07/21/2017 MARCELLE JALENKRISTINA N Ot E66.9 OBESITY, UNSPECIFIED 07/21/2017 VARSHA IBANEZ N Ot R79.89 OTHER SPECIFIED ABNORMAL FINDINGS OF BLO 07/21/2017 VARSHA IBANEZ N Ot Z68.35 BODY MASS INDEX (BMI) 35.0-35.9, ADULT 07/25/2017 MARCELLE JALENKRISTINA N Ot C43.59 MALIGNANT MELANOMA OF OTHER PART OF TRUN 07/25/2017 MARCELLE JALENKRISTINA N Ot 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 07/25/2017 MARCELLE VARSHA N Ot E66.9 OBESITY, UNSPECIFIED 07/25/2017 MARCELLE VARSHA N Ot R79.89 OTHER SPECIFIED ABNORMAL FINDINGS OF BLO 07/25/2017 VARSHA IBANEZ Ot Z68.35 BODY MASS INDEX (BMI) 35.0-35.9, ADULT 07/26/2017 VARSHA IBANEZ Ot C43.59 MALIGNANT MELANOMA OF OTHER PART OF TRUN 07/26/2017 VARSHA IBANEZ Ot 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 07/26/2017 VARSHA IBANEZ Ot E66.9 OBESITY, UNSPECIFIED 07/26/2017 VARSHA IBANEZ Ot R79.89 OTHER SPECIFIED ABNORMAL FINDINGS OF BLO 07/26/2017 VARSHA IBANEZ Ot Z68.35 BODY MASS INDEX (BMI) 35.0-35.9, ADULT 09/08/2017 BRANDY CUEVAS DO Ot Z12.31 ENCNTR SCREEN MAMMOGRAM FOR MALIGNANT NE 11/08/2017 CAMELIA FRANCIS MD Ot C43.59 MALIGNANT MELANOMA OF OTHER PART OF TRUN 11/08/2017 CAMELIA FRANCIS MD Ot 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 11/08/2017 CAMELIA FRANCIS MD Ot E66.9 OBESITY, UNSPECIFIED 11/08/2017 CAMELIA FRANCIS MD Ot R79.89 OTHER SPECIFIED ABNORMAL FINDINGS OF BLO 11/08/2017 CAMELIA FRANCIS MD Ot Z68.35 BODY MASS INDEX (BMI) 35.0-35.9, ADULT 02/02/2018 CAMELIA FRANCIS MD Ot C43.59 MALIGNANT MELANOMA OF OTHER PART OF TRUN 02/02/2018 CAMELIA FRANCIS MD Ot 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 02/02/2018 CAMELIA FRANCIS MD Ot E66.9 OBESITY, UNSPECIFIED 02/02/2018 CAMELIA FRANCIS MD Ot Z68.34 BODY MASS INDEX (BMI) 34.0-34.9, ADULT 02/03/2018 CAMELIA FRANCIS MD Ot C43.59 MALIGNANT MELANOMA OF OTHER PART OF TRUN 02/03/2018 CAMELIA FRANCIS MD Ot 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 02/03/2018 CAMELIA FRANCIS MD Ot E66.9 OBESITY, UNSPECIFIED 02/03/2018 CAMELIA FRANCIS MD Ot Z68.34 BODY MASS INDEX (BMI) 34.0-34.9, ADULT 02/21/2018 CAMELIA FRANCIS MD Ot C43.59 MALIGNANT MELANOMA OF OTHER PART OF TRUN 02/21/2018 CAMELIA FRANCIS MD Ot 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 02/21/2018 CAMELIA FRANCIS MD Ot E66.9 OBESITY, UNSPECIFIED 02/21/2018 CAMELIA FRANCIS MD Ot Z68.34 BODY MASS INDEX (BMI) 34.0-34.9, ADULT 08/25/2018 BRANDY CUEVAS DO S Ot Z12.31 ENCNTR SCREEN MAMMOGRAM FOR MALIGNANT NE 09/06/2018 BRANDY CUEVAS DO S Ot Z12.31 ENCNTR SCREEN MAMMOGRAM FOR MALIGNANT NE 09/21/2018 CAMELIA FRANCIS MD Ot C43.59 MALIGNANT MELANOMA OF OTHER PART OF TRUN 09/21/2018 CAMELIA FRANCIS MD Ot 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 09/21/2018 CAMELIA FRANCIS MD Ot E66.9 OBESITY, UNSPECIFIED 09/21/2018 CAMELIA FRANCIS MD Ot Z68.36 BODY MASS INDEX (BMI) 36.0-36.9, ADULT 09/22/2018 CAMELIA FRANCIS MD Ot C43.59 MALIGNANT MELANOMA OF OTHER PART OF TRUN 09/22/2018 CAMELIA FRANCIS MD Ot 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 Results Test Result Range Urine beta human chorionic gonadotropin (hCG) measurement - 09/13/16 07:20 Urine beta human chorionic gonadotropin (hCG) measurement NEGATIVE NEGATIVE Methicillin resistant Staphylococcus aureus (MRSA) screening culture - 09/13/16 08:42 Methicillin resistant Staphylococcus aureus (MRSA) screening culture NEG NRG Whole blood basic metabolic panel - 06/23/17 15:30 Serum or plasma sodium measurement (moles/volume) 139 mmol/L 135-145 Serum or plasma potassium measurement (moles/volume) 4.0 mmol/L 3.6-5.0 Serum or plasma chloride measurement (moles/volume) 105 mmol/L 98-107 Carbon dioxide 24 mmol/L 21-32 Serum or plasma anion gap determination (moles/volume) 10 mmol/L 5-14 Serum or plasma urea nitrogen measurement (mass/volume) 14 mg/dL 7-18 Serum or plasma creatinine measurement (mass/volume) 0.98 mg/dL 0.60-1.30 Serum or plasma urea nitrogen/creatinine mass ratio 14 NRG Serum or plasma creatinine measurement with calculation of estimated glomerular filtration rate > NRG Serum or plasma glucose measurement (mass/volume) 94 mg/dL 70-105 Serum or plasma calcium measurement (mass/volume) 9.2 mg/dL 8.5-10.1 Encounters ACCT No. Visit Date/Time Discharge Status Pt. Type Provider Facility Loc./Unit Complaint [id number] 12/22/2018 15:01:00 12/22/2018 23:59:59 CLS Outpatient CAMELIA FRANCIS MD [facility] ONC [id number] 06/23/2018 15:01:00 09/21/2018 00:01:00 DIS Outpatient CAMELIA FRANCIS MD [facility] ONC [id number] 08/24/2018 07:58:00 08/24/2018 23:59:59 CLS Outpatient BRANDY CUEVAS DO [facility] RAD SCREENING [id number] 11/04/2017 14:03:00 02/02/2018 00:01:00 DIS Outpatient CAMELIA FRANCIS MD [facility] ONC [id number] 08/16/2017 12:56:00 08/16/2017 23:59:59 CLS Outpatient BRANDY CUEVAS DO S [facility] RAD SCREENING [id number] 04/25/2017 10:38:00 07/25/2017 00:01:00 DIS Outpatient VARSHA IBANEZ [facility] ONC [id number] 05/10/2017 14:15:00 05/14/2017 00:01:00 DIS Outpatient VARSHA IBANEZ [facility] ONC [id number] 01/24/2017 10:16:00 04/24/2017 00:01:00 DIS Outpatient ANABEL SÁNCHEZ MD [facility] ONC [id number] 11/04/2016 13:46:00 01/18/2017 00:01:00 DIS Outpatient ANABEL SÁNCHEZ MD [facility] ONC [id number] 09/13/2016 06:57:00 09/13/2016 16:50:00 DIS Outpatient FADUMO MCKINNEY MD [facility] CARD MELANOMA [id number] 09/08/2016 05:33:00 09/08/2016 11:12:00 DIS Outpatient FADUMO MCKINNEY MD [facility] PREOP MELANOMA [id number] 08/13/2016 11:24:00 08/13/2016 23:59:59 CLS Outpatient PARVEEN CUEVAS DOQUELINE S [facility] RAD SCREENING [id number] 08/12/2015 11:06:00 08/12/2015 23:59:59 CLS Outpatient MIRANDA ALAS BRANDY S [facility] RAD SCREENING [id number] 06/21/2014 10:19:00 06/21/2014 23:59:59 CLS Outpatient MIRANDA ALAS BRANDY S [facility] RAD SCREENING [id number] 01/26/2014 09:01:00 01/26/2014 10:17:00 DIS Emergency JORDON YUDITH ALAS [facility] ER FACIAL INJURY L SIDE [id number] 08/12/2015 11:07:00 Document Registration [id number] 08/18/2011 07:05:00 Document Registration 10/201708/21/2018 14:34:49 08/21/2018 23:59:59 CLS Outpatient Brandy Cuevas S.
[2019-01-02] MEDS ORDERED: ONDANSETRON 4 MG/2 ML (SDV) Z0FRAN IVP ONE ×3 (18:15→19:15)
[2019-01-02 18:18] LABS: BASOPHILS # (AUTO) 0.1 10^3/uL (0.0-0.1); BASOPHILS % (AUTO) 1 % (0-10); EOSINOPHILS # (AUTO) 0.3 10^3/uL (0.0-0.3); EOSINOPHILS % (AUTO) 4 % (0-10); HEMATOCRIT 38 % (35-52); LYMPHOCYTES # (AUTO) 2.5 X 10^3 (1.0-4.0); LYMPHOCYTES % (AUTO) 29 % (12-44); MEAN CORPUSCULAR HEMOGLOBIN 32 PG (25-34); MEAN CORPUSCULAR HGB CONC 34 G/DL (32-36); MEAN CORPUSCULAR VOLUME 94 FL (80-99); MEAN PLATELET VOLUME 9.3 FL (7.4-10.4); MONOCYTES # (AUTO) 0.6 X 10^3 (0.0-1.0); MONOCYTES % (AUTO) 7 % (0-12); NEUTROPHILS % (AUTO) 60 % (42-75); PLATELET COUNT 371 10^3/uL (130-400); RED CELL DISTRIBUTION WIDTH 12.7 % (10.0-14.5); WHITE BLOOD COUNT 8.4 10^3/uL (4.3-11.0)
--- NOTE | 2019-01-02 18:24 | NUR ---
[facility] ON STANDBY
[2019-01-02] MEDS ORDERED: fentaNYL INJECTION 100 MCG/2 ML AMP ONE (18:25)
[2019-01-02] MEDS ORDERED: fentaNYL INJECTION 100 MCG/2 ML AMP IVP ONE (18:30)
--- NOTE | 2019-01-02 18:31 | NUR ---
[facility] DECLINED FOR WEATHER.
--- NOTE | 2019-01-02 18:32 | Diagnostic Imaging Report ---
CLINICAL INDICATION: Patient with facial droop, stroke protocol. EXAM: Axial CT scan of the brain performed without IV contrast. COMPARISON: None. FINDINGS: There is a 3.4 cm x 3.4 cm hyperdense area within the right frontal lobe with moderate amount of adjacent parenchymal edema. There is also another grossly 13 mm area of subtle increased/isodensity involving the right parietal lobe with small amount of low density adjacent to it. There is roughly 3 mm of [id number] midline shift. There is no intraventricular blood or hydrocephalus. The suprasellar cistern appear slightly effaced due to mass effect with crowding of the right ambient cistern region. The extracranial soft tissue, skull, and orbits are unremarkable. Paranasal sinuses are clear. Mastoid air cells are unremarkable. IMPRESSION: 1: There is a 3.4 cm high density area in the right frontal lobe region with moderate adjacent parenchymal edema. This finding is concerning for intra-parenchymal blood. A hemorrhagic mass may also be considered. MRI of the brain with and without IV contrast is recommended for further evaluation. 2: There is concern for possible other 13 mm area involving the right parietal lobe with small amount of adjacent low density. This may also represent a mass. This would be better evaluated with MRI of the brain as well. 3: There is mild [id number]-hd-[id number] midline shift and crowding of the basal cisterns. There is no hydrocephalus. Results of this report discussed with Dr. Polina Hope via the telephone on 01/02/2019 at 1820 hrs. CRITICAL FINDINGS Dictated by: Dictated on workstation # [id number]
--- NOTE | 2019-01-02 18:34 | NUR ---
[facility] CALLED TO BE PUT ON STANDBY ET WILL CALLBACK AFTER THEY HAVE [facility]AR[facility].
[2019-01-02] MEDS ORDERED: SCOPOLAMINE 1.5 MG (TRANSDERM-SCOP) PATCH ONE (18:35)
--- NOTE | 2019-01-02 18:36 | NUR ---
CT CALLED TO HAVE IMAGES CLOUDED TO [facility].
[2019-01-02 18:38] LABS: FIBRIN DEGRADATION PRODUCTS 0.3 UG/ML (0.00-0.49); INR 0.9 (0.8-1.4); PROTHROMBIN TIME PATIENT 12.8 SEC (12.2-14.7)
[2019-01-02 18:42] LABS: ALANINE AMINOTRANSFERASE 11 U/L (0-55); ALBUMIN 4.3 GM/DL (3.2-4.5); ALKALINE PHOSPHATASE 53 U/L (40-136); BILIRUBIN,TOTAL 0.2 MG/DL (0.1-1.0); BUN/CREATININE RATIO 14; CALCIUM 9.3 MG/DL (8.5-10.1); CARBON DIOXIDE 20 MMOL/L (21-32); CHLORIDE 106 MMOL/L (98-107); CREATININE SERUM 1.03 MG/DL (0.60-1.30); GFR ESTIMATED 58; GLUCOSE 112 MG/DL (70-105); POTASSIUM 3.5 MMOL/L (3.6-5.0); SODIUM 141 MMOL/L (135-145); TOTAL PROTEIN 6.7 GM/DL (6.4-8.2)
--- NOTE | 2019-01-02 18:43 | NUR ---
[facility] HAS DECLINED INCLUDING [facility]. [facility] ON PHONE WITH DISPATCH AT THIS TIME.
--- NOTE | 2019-01-02 18:44 | Diagnostic Imaging Report ---
INDICATION: Stroke. TIME OF EXAM: 06:29 p.m. FINDINGS: The heart size is normal. The pulmonary vascularity is unremarkable. The lungs are clear. No infiltrate, effusion or pneumothorax is detected. IMPRESSION: No acute cardiopulmonary process is detected. Dictated by: Dictated on workstation # [id number]
[2019-01-02] MEDS ORDERED: SCOPOLAMINE 1.5 MG (TRANSDERM-SCOP) PATCH TD ONE (18:45)
[2019-01-02] MEDS ORDERED: LABETALOL HCL 20 MG/4 ML VIAL IV ONE ×2 (18:45→19:00)
--- NOTE | 2019-01-02 18:48 | NUR ---
REPORT AND CARE TURNED OVER TO ELIANE.
[2019-01-02 19:00] VITALS: BP 147/71
[2019-01-02 19:15] VITALS: BP 147/71
--- NOTE | 2019-01-02 23:17 | ED Neurological Problem ---
General Chief Complaint: Neuro-Stroke Like Symptoms Stated Complaint: STROKE Nursing Triage Note: ARRIVED VIA EMS WITH STROKE LIKE SYMPTOMS, LEFT SIDED FACIAL DROOPING AND SLURRED SPEACH Nursing Sepsis Screen: No Definite Risk Source: patient, EMS History of Present Illness Date Seen by Provider: January 02, 2019 Time Seen by Provider: 17:58 Initial Comments PT ARRIVES VIA EMS FROM HOME, TAKEN STRAIGHT TO CT C/O SUDDEN ONSET OF LEFT FACIAL DROOP AND NUMBNESS, AND SLURRED SPEECH--SYMPTOMS BEGAN AT 1720 WHILE RESTING AT HOME ALSO HAD SUDDEN ONSET OF RIGHT FRONTAL/PARIETAL HEADACHE WHEN SYMPTOMS BEGAN BEGAN TO HAVE NAUSEA/VOMITING IN THE AMBULANCE ON ARRIVAL HERE NO EXTREMITY WEAKNESS OR DIFFICULTY WALKING NO VISION CHANGES NO SYNCOPE NO CHEST PAIN, NO SHORTNESS OF BREATH, NO PALPITATIONS MILD DIZZINESS NO HISTORY OF SIMILAR NO HISTORY OF ANY MEDICAL PROBLEMS, DOES NOT TAKE ANY MEDICATIONS LMP 1 WEEK AGO, NORMAL. NO CONTROL EMS REPORT INITIAL BP 159/67, PULSE 94, O2 SAT 100%, BP 90/55, HR 90, O2 SAT 100% BY EMS JUST PRIOR TO ARRIVAL PCP: DR. JEAN Allergies and Home Medications Allergies Coded Allergies: No Known Drug Allergies (Unverified , 01/26/14) Home Medications Hydrocodone Bit/Acetaminophen 1 Each Tablet, 1-2 TAB PO 4-6HR PRN for PAIN Prescribed by: FADUMO MCKINNEY on 09/13/16 1505 Patient Home Medication List Home Medication List Reviewed: Yes Review of Systems Review of Systems Constitutional: No chills, No diaphoresis; dizziness; No fever, No malaise, No weakness Eyes: No Symptoms Reported Ears, Nose, Mouth, Throat: no symptoms reported Respiratory: no symptoms reported Cardiovascular: no symptoms reported; No chest pain, No palpitations, No syncope Gastrointestinal: see HPI; No abdominal pain; nausea, vomiting Genitourinary: no symptoms reported : No LMP: December 26, 2018 Musculoskeletal: no symptoms reported Skin: no symptoms reported Psychiatric/Neurological: See HPI; Denies Cognitive Dysfunction; Headache, Numbness, Tingling, Weakness (LEFT FACE) Endocrine: No Symptoms Reported Hematologic/Lymphatic: No Symptoms Reported; Denies Anemia, Denies Blood Clots Past Pqxjwjk-Wbtwjw-Lzfoms Hx Patient Social History Alcohol Use: Occasionally Uses Recreational Drug Use: No Smoking Status: Current Someday Smoker Type Used: Cigarettes Recent Foreign Travel: No Contact w/Someone Who Travel: No Recent Infectious Disease Expo: No Recent Hopitalizations: No Immunizations Up To Date Tetanus Booster (TDap): Unknown Seasonal Allergies Seasonal Allergies: No Past Medical History Surgeries: Yes (LEFT KNEE; OPEN MANDIBLE FX 2013; EXCISION OF MELANOMA OF BACK WITH SKIN GRAFT AND SENTINEL LYMPH NODE BIOPSY OF AXILLA 08/2016) Orthopedic Respiratory: No Cardiac: No Neurological: No : No Hx : 1 Hx Para: 1 Reproductive Disorders: No Female Reproductive Disorders: Denies Genitourinary: No Gastrointestinal: No Musculoskeletal: Yes (LEFT KNEE SURGERY) Endocrine: No HEENT: Yes (OPEN MANDIBLE FX 2013) Loss of Vision: Denies Hearing Impairment: Denies Cancer: Yes (MENALNOMA OF BACK 08/2016) Melanoma Did You Recieve Any Treatments: Yes (SURGICAL REMOVAL WITH CLEAR MARGINS AND NEGATIVE SENTINEL LYMPH NODE 08/2016) What Type of Treatment Did You: Surgical Intervention Psychosocial: No Integumentary: No Blood Disorders: No Physical Exam Vital Signs Vital Signs - First Documented 01/02/19 01/02/19 01/02/19 17:53 18:00 18:36 Temp 98.7 Pulse 80 Resp 34 B/P (MAP) 154/97 (116) Pulse Ox 100 100 O2 Delivery Nasal Cannula O2 Flow Rate 2.00 FiO2 84 Capillary Refill : Less Than 3 Seconds Height, Weight, BMI Height: 5'5.00" Weight: 218lbs. 0.0oz. 98.292490nz; 35.8 BMI Method:Stated General Appearance: WD/WN, no apparent distress, other (VOMITUS AROUND MOUTH ON ARRIVAL) HEENT: PERRL/EOMI Neck: normal inspection Respiratory: normal breath sounds, no respiratory distress, no accessory muscle use Cardiovascular: normal peripheral pulses, regular rate, rhythm, no JVD, no murmur Gastrointestinal: non tender, soft Back: normal inspection Extremities: normal inspection, no pedal edema, normal capillary refill Neurologic/Psychiatric: alert, normal mood/affect, oriented x 3, facial droop (ON LEFT) Crainal Nerves: abnormal speech, facial asymmetry, facial droop (ON LEFT), facial paresthesias (ON LEFT), facial weakness (ON LEFT); No gaze palsy Coordination/Gait: normal finger to nose Motor/Sensory: no pronator drift; No weak motor strength RUE, No weak motor strength LUE, No weak motor strength RLE, No weak motor strength LLE Skin: normal color, warm/dry Stroke NIH Stroke Scale Assessment Level of Consciousness: 0=Alert (0), Level of Consciousness-Questions: 0=Answers both month/age (0), LOC Commands: 0=Performs both tasks (0), Visual Quintero: 0=No visual loss (0), Facial Movement (Facial Paresis): 2=Partial paralysis (2), Motor Function-Arms Right: 0=No drift (0), Motor Function-Arms Left: 0=No drift (0), Motor Function-Legs Right: 0=No drift (0), Motor Function-Legs Left: 0=No drift (0), Limb Ataxia: 0=Absent (0), Sensory: 0=Normal:no loss (0), Best Language: 0=No aphasia (0), Dysarthria: 1=Mild to moderate loss (1), Extinction & Inattention: 0=No abnormality (0), Total: Progress/Results/Core Measures Results/Orders Lab Results Laboratory Tests Test 01/02/19 18:13 Range/Units White Blood Count 8.4 4.3-11.0 10^3/uL Red Blood Count 4.03 L 4.35-5.85 10^6/uL Hemoglobin 13.0 11.5-16.0 G/DL Hematocrit 38 35-52 % Mean Corpuscular Volume 94 80-99 FL Mean Corpuscular Hemoglobin 32 25-34 PG Mean Corpuscular Hemoglobin Concent 34 32-36 G/DL Red Cell Distribution Width 12.7 10.0-14.5 % Platelet Count 371 130-400 10^3/uL Mean Platelet Volume 9.3 7.4-10.4 FL Neutrophils (%) (Auto) 60 42-75 % Lymphocytes (%) (Auto) 29 12-44 % Monocytes (%) (Auto) 7 0-12 % Eosinophils (%) (Auto) 4 0-10 % Basophils (%) (Auto) 1 0-10 % Neutrophils # (Auto) 5.0 1.8-7.8 X 10^3 Lymphocytes # (Auto) 2.5 1.0-4.0 X 10^3 Monocytes # (Auto) 0.6 0.0-1.0 X 10^3 Eosinophils # (Auto) 0.3 0.0-0.3 10^3/uL Basophils # (Auto) 0.1 0.0-0.1 10^3/uL Prothrombin Time 12.8 12.2-14.7 SEC INR Comment 0.9 0.8-1.4 Activated Partial Thromboplast Time 28 24-35 SEC D-Dimer 0.30 0.00-0.49 UG/ML Sodium Level 141 135-145 MMOL/L Potassium Level 3.5 L 3.6-5.0 MMOL/L Chloride Level 106 98-107 MMOL/L Carbon Dioxide Level 20 L 21-32 MMOL/L Anion Gap 15 H 5-14 MMOL/L Blood Urea Nitrogen 14 7-18 MG/DL Creatinine 1.03 0.60-1.30 MG/DL Estimat Glomerular Filtration Rate 58 BUN/Creatinine Ratio 14 Glucose Level 112 H 70-105 MG/DL Calcium Level 9.3 8.5-10.1 MG/DL Corrected Calcium 9.1 8.5-10.1 MG/DL Total Bilirubin 0.2 0.1-1.0 MG/DL Aspartate Amino Transf (AST/SGOT) 22 5-34 U/L Alanine Aminotransferase (ALT/SGPT) 11 0-55 U/L Alkaline Phosphatase 53 40-136 U/L Troponin I < 0.028 <0.028 NG/ML Total Protein 6.7 6.4-8.2 GM/DL Albumin 4.3 3.2-4.5 GM/DL My Orders Orders - YUDITH RUVALCABA DO Cbc With Automated Diff (01/02/19 18:05) Protime With Inr (01/02/19 18:05) Partial Thromboplastin Time (01/02/19 18:05) Comprehensive Metabolic Panel (01/02/19 18:05) Fibrin Degradation Products (01/02/19 18:05) Troponin I (01/02/19 18:05) Ua Culture If Indicated (01/02/19 18:05) Catheter(Urinary) Insert & Ass 03,15 (01/02/19 18:05) Nothing By Mouth (01/03/19 Breakfast) Accucheck Stat ONCE (01/02/19 18:05) Ed Iv/Invasive Line Start (01/02/19 18:05) Ed Iv/Invasive Line Start (01/02/19 18:05) Vital Signs Stroke Patient Q15M (01/02/19 18:05) Ct Head Wo-R/O Stroke (01/02/19 18:05) O2 (01/02/19 18:05) Intake & Output 06,14,22 (01/02/19 18:05) Monitor-Rhythm Ecg Trace Only (01/02/19 18:05) Dysphagia Screening Tool (01/02/19 18:05) Post Thrombolytic Adminstratio (01/02/19 18:05) Lipid Panel (01/03/19 06:00) Ondansetron Injection (Zofran Injectio (01/02/19 18:15) Fentanyl Injection (Sublimaze Injection (01/02/19 18:30) Fentanyl Injection (Sublimaze Injection (01/02/19 18:25) Labetalol Injection (Normodyne Injection (01/02/19 18:45) Scopolamine Patch (Transderm-Scop Patch) (01/02/19 18:45) Ondansetron Injection (Zofran Injectio (01/02/19 18:45) Scopolamine Patch (Transderm-Scop Patch) (01/02/19 18:35) Labetalol Injection (Normodyne Injection (01/02/19 19:00) Ondansetron Injection (Zofran Injectio (01/02/19 19:15) Medications Given in ED Current Medications Medications Dose Ordered Sig/Jassi Route Start Time Stop Time Status Last Admin Dose Admin Fentanyl Citrate 50 mcg ONCE ONCE IVP 01/02/19 18:30 01/02/19 18:31 DC 01/02/19 18:30 50 MCG Labetalol HCl 10 mg ONCE ONCE IV 01/02/19 18:45 01/02/19 18:46 DC 01/02/19 18:42 10 MG Labetalol HCl 20 mg ONCE ONCE IV 01/02/19 19:00 01/02/19 19:01 DC 01/02/19 19:02 20 MG Ondansetron HCl 8 mg ONCE ONCE IVP 01/02/19 18:15 01/02/19 18:16 DC 01/02/19 18:27 8 MG Ondansetron HCl 8 mg ONCE ONCE IVP 01/02/19 18:45 01/02/19 18:46 DC 01/02/19 18:41 8 MG Ondansetron HCl 8 mg ONCE ONCE IVP 01/02/19 19:15 01/02/19 19:16 DC 01/02/19 19:04 8 MG Scopolamine 1.5 mg ONCE ONCE TD 01/02/19 18:45 01/02/19 18:46 DC 01/02/19 18:41 1.5 MG Vital Signs/I&O 01/02/19 01/02/19 01/02/19 01/02/19 17:53 18:00 18:36 19:00 Temp 98.7 Pulse 80 78 75 80 75 Resp 34 22 17 18 17 B/P (MAP) 154/97 (116) 154/97 147/71 164/114 147/71 Pulse Ox 100 99 100 100 O2 Delivery Nasal Cannula O2 Flow Rate 2.00 FiO2 84 01/02/19 19:15 Temp 98.3 Pulse 75 Resp 17 B/P (MAP) 147/71 (96) Pulse Ox 99 O2 Delivery Room Air Blood Pressure Mean: 96 FSBG Bedside Testing Finger Stick Blood Glucose: 97 Blood Glucose Action Taken: TAKEN BY EMS Progress Progress Note : Progress Note PT CONTINUED TO HAVE EPISODES OF NAUSEA--GIVEN ZOFRAN AND SCOPOLAMINE PATCH WITH SOME RELIEF PT GIVEN FENTANYL FOR HEADACHE, WITH IMPROVEMENT IN PAIN BP 147/71 WITH HR IN 80'S AND O2 SAT 100% AT TIME OF TRANSFER NO DETERIORATION IN PT'S CONDITION DURING ER STAY PT DENIED ANY MEDICAL PROBLEMS OR SURGERIES ON ARRIVAL AND DURING ER STAY; ON REVIEW OF OLD CHART, WAS NOTED TO HAVE A HISTORY OF KNEE SURGERY AND OPEN JAW FRACTURE, AND HISTORY OF MELANOMA 08/2016 WITH SURGICAL EXCISION Initial ECG Impression Date: January 02, 2019 Initial ECG Impression Time: 18:15 Initial ECG Rate: 79 Initial ECG Rhythm: Normal Sinus Initial ECG Comparisson: No Previous ECG Available Diagnostic Imaging Comments CXR--NO ACUTE PROCESS, PER RADIOLOGIST REPORT CT HEAD--3.4 CM AREA OF HEMORRHAGE AND / OR HEMORRHAGIC MASS WITH MODERATE EDEMA AND MIDLINE SHIFT IN RIGHT FRONTAL LOBE, ALSO CONCERN FOR ANOTHER POSSIBLE 13MM AREA INVOLVING RIGHT PARIETAL LOBE, WHICH MAY ALSO REPRESENT MASS. MILD RIGHT TO LEFT MIDLINE SHIFT WITH CROWDING OF BASAL CISTERNS. PER RADIOLOGIST VIA PHONE AT 1817 Reviewed: Reviewed by Me, Discussed w/Radiologist Critical Care Note Critical Care Total Time (minutes) 30 Departure Communication (Admissions) 1820--CALLED [facility] 1823--SPOKE WITH DR. ROGERS, NEUROLOGIST ESCALATOR ATTENDANT. ACCEPTS PT FOR ADMIT TO ICU, BUT ADVISES TO SPEAK TO NEUROSURGEON. PAGING DR. DUARTE, NEUROSURGEON. 1827--[facility] IS NOT FLYING DUE TO WEATHER 1828--CALLED [facility] 1829--SPOKE WITH DR. DUARTE, ACCEPTS PT FOR ADMIT TO ICU. ADVISES TREATMENT OF BP TO < 140/90. LABETALOL ORDERED. 1838--[facility] UNABLE TO TRANSPORT DUE TO WEATHER 1842--[facility] ALSO UNABLE TO TRANSPORT DUE TO WEATHER 1843--[facility] DISPATCHED FOR EMERGENT TRANSFER 1899--EMS HERE FOR TRANSPORT. Impression Primary Impression: Intracranial hemorrhage Additional Impressions: POSSIBLE HEMORRHAGIC INTRACRANIAL MASS HTN (hypertension) Disposition: 02 XFER [facility]-TRM HOSP Condition: Improved Transfer Transfer Facility: Method of Transfer: EMS Departure-Patient Inst. Referrals: JOSE MIGUEL JEAN DO (PCP) Primary Care Physician YUDITH RUVALCABA DO January 02, 2019 23:17
== END 2019-01-02 19:15 | disposition short-term general hospital (02) ==
LOC: EDUNIT# 17:53 → ER 17:56
DX: I61.9 Nontraumatic intracerebral hemorrhage, unspecified (principal); I10 Essential (primary) hypertension; F17.210 Nicotine dependence, cigarettes, uncomplicated; Z85.820 Personal history of malignant melanoma of skin; Z98.890 Other specified postprocedural states
CPT/HCPCS: 36415; 70450; 71045; 80053; 84484; 85025; 85379; 85610; 85730; 93005; 93041

== ENCOUNTER → 2022-03-19 | Outpatient (CLI) | payer BC, OTHER ==
--- NOTE | 2022-03-19 13:40 | Diagnostic Imaging Report ---
Indication: Routine screening. Comparison is made with prior mammograms 08/24/2018 and 08/16/2017. 2-D and 3-D bilateral screening mammography was performed CAD. Scattered fibroglandular densities are identified bilaterally. There are scattered benign calcifications. No mass or malignant appearing microcalcifications are seen. Axillae are unremarkable. IMPRESSION: BI-RADS Category 2 No mammographic features suspicious for malignancy are identified. ACR BI-RADS Category 2: Benign findings. Result letter will be mailed to the patient. Note: At least 10% of breast cancer is not imaged by mammography. Dictated by: Dictated on workstation # [id number]
== END ==
LOC: RAD 10:21
PROVIDERS: ATTEND Nurse Practitioner
DX: Z12.31 Encounter for screening mammogram for malignant neoplasm of breast (principal)
CPT/HCPCS: 77063; 77067